=== PATIENT | female | born 1960 | race Caucasian/White ===

== ENCOUNTER → 2023-12-24 14:07 | Outpatient (REF) | payer OTHER, SELFPAY | LOC: WDC 14:07 | PROVIDERS: ATTENDING PHYSICIAN Surgery; FAMILY PHYSICIAN Family Medicine | DX: C50.411 Malignant neoplasm of upper-outer quadrant of right female breast (principal) | CPT/HCPCS: 19285; 38792; 76942; 77065; A4648; A9541 ==

== ENCOUNTER → 2023-12-25 07:43 | Outpatient (REF) | payer OTHER, SELFPAY | LOC: WDC 07:43 | PROVIDERS: ATTENDING PHYSICIAN Surgery | DX: C50.411 Malignant neoplasm of upper-outer quadrant of right female breast (principal) | CPT/HCPCS: 88305; 88307; 88332; 76098; 88331; 88341; 88342 ==

== ENCOUNTER → 2024-09-30 09:47 | Outpatient (REF) | payer OTHER, SELFPAY | LOC: DHSLP 09:47 | PROVIDERS: ATTENDING PHYSICIAN Internal Medicine Hematology & Oncology; FAMILY PHYSICIAN Family Medicine | DX: G47.33 Obstructive sleep apnea (adult) (pediatric) (principal) | CPT/HCPCS: 95800 ==

== ENCOUNTER → 2024-11-24 13:20 | Outpatient (REF) | payer OTHER, SELFPAY | LOC: WDC 13:20 | PROVIDERS: ATTENDING PHYSICIAN Obstetrics & Gynecology; FAMILY PHYSICIAN Family Medicine | DX: Z12.31 Encounter for screening mammogram for malignant neoplasm of breast (principal) | CPT/HCPCS: 77063; 77067 ==

== ENCOUNTER → 2025-04-20 12:48 | Outpatient (REF) | payer OTHER, SELFPAY | LOC: WDC 12:48 | PROVIDERS: ATTENDING PHYSICIAN Surgery | DX: R92.2 Inconclusive mammogram (principal); C50.411 Malignant neoplasm of upper-outer quadrant of right female breast; Z17.0 Estrogen receptor positive status [ER+] | CPT/HCPCS: 76641 ==